=== PATIENT | male | born 1995 | race Caucasian/White ===

== ENCOUNTER 2020-10-21 15:43 | Emergency (ER) | payer MEDICAID, SELFPAY ==
[2020-10-21 15:47] VITALS: BP 145/82; PULSE 72; RESP 12; TEMP 36.7; O2SAT 97
--- NOTE | 2020-10-21 16:05 | ED.GENADUL_ITS ---
Discharge Plan Disposition Patient Disposition: HOME Condition: Stable Discharge Details Clinical Impression: Hematuria Primary Care Provider: Jeferson Parada ED Provider: Dany Chavez Home Meds and New Rx's Prescriptions: Continued Vyvanse 10 mg capsule 10 mg PO PRN PRNRF: 0 Discharge Instructions Instructions: Hematuria (ED) Additional Instructions: you have a small amount of blood in your urine you should be contacted with an appointment for urology if you have severe worsening pain, fevers or feel more ill return to the emergency department Medical Decision Making 25 yo male who denies chronic medical problems comes in with 4-5 days of feeling as though he can't empty his bladder and having to go frequently. Denies discharge, vomit, fevers, back pain. He only has discomfort in suprapubic region and has no abdominal tenderness on exam. No testicle swelling or pain. He states not sexually active for years and no concern for std. Given his symptoms will obtain ua and also bladder scan. Has no findings on exam or history to suggest pathology such as appendicitis or diverticulitis sodo not feel imaging indicated at this time ua shows micoscopic hematuria otherwise no acute findings, no suggestion of infection.He remains stable without pain at this time. Unclear etiology of his microscopic hematuria, will refer to urology for evaluation as soon as possible. He is stable for d/c and return precautions given Differential Diagnosis Differential Diagnosis: prostate enlarged, uti, cystitis Lab Data Lab results reviewed: Yes I reviewed the patient's lab results. HPI General Mode of arrival: ambulatory . Date/Time Provider Initiated Documentation: 10/21/20 15:59 . Limitations to Documentation: no limitations . Information obtained by: patient . History of Present Illness 25 year old M presents to the emergency department with the chief complaint of feels can't empty bladder, described as mild, Patient started experiencing this day(s) (5) and it has been constant. No relieving factors improve symptom(s), No exacerbating factors reported . Patient did receive the following treatments prior to arrival, none Related Data Home Medications Medication Instructions Recorded Confirmed lisdexamfetamine 10 mg capsule 10 mg PO PRN PRN 03/24/20 10/21/20 Allergies Allergy/AdvReac Type Severity Reaction Status Date / Time No Known Allergies Allergy Verified 10/21/20 15:49 General Stated Complaint: Abd Prob DARRICK: 3 Review of Systems All systems reviewed & are unremarkable except as noted in HPI and below Constitutional Constitutional: Denies chills, Denies fever(s) and Denies weakness Cardiovascular Cardiovascular: Denies chest pain and Denies dyspnea Respiratory Respiratory: Denies cough and Denies dyspnea Gastrointestinal Gastrointestinal: Denies nausea and Denies vomiting Musculoskeletal Musculoskeletal: Denies joint swelling Neurologic Neurologic: Denies weakness Psychiatric Psychiatric: Denies depression PFSH Medical History (Updated 10/21/20 @ 18:03 by Dany Chavez MD) ADHD Forearm fracture Left Social History (Updated 04/22/20 @ 13:34 by Ashlee Obrien RN) Smoking/Tobacco Use Status: Never Smoking risk assessment performed?: Yes Alcohol Intake: current Alcohol Intake frequency: a few times a week Alcohol type: beer and wine Drug use: Occasionally Substance use type: marijuana Adopted: Yes Caregiver/Support person: No Foster care: No Household members: family Housing: house Do you need help understanding health information?: Rarely 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: Student Sexually active: Yes Do you think of yourself as: straight/heterosexual Current gender identity: male Do you feel safe at home: Yes Do you feel safe in your relationship?: Yes Exam Const General: no acute distress Orientation: alert HENMT Head: normal to inspection Ears: external ears normal General nose exam: external nose normal Mouth: moist mucous membranes Eyes General: appearance normal, both eyes and all related structures Neck Neck: normal visual inspection Resp Effort & Inspection: normal respiratory effort and able to speak in complete sentences Cardio Rate: regular rate GI Palpation: soft, not rigid and nontender Skin General skin exam: no rashes or lesions noted Neuro General: patient alert and patient oriented x3 Extrem General: normal to inspection Psych Mental Status: mental status grossly normal Course Vital Signs Vital signs: Vital Signs Temperature 36.7 C 10/21/20 15:47 Pulse 72 10/21/20 15:47 Respiratory Rate 12 10/21/20 15:47 Blood Pressure 145/82 H 10/21/20 15:47 Pulse Oximetry 97 10/21/20 15:47 Temperature 36.7 C 10/21/20 15:47 Temperature Source Skin 10/21/20 15:47 Pulse 72 10/21/20 15:47 Respiratory Rate 12 10/21/20 15:47 Respiratory Effort Non-Labored 10/21/20 15:53 Blood Pressure 145/82 H 10/21/20 15:47 Blood Pressure Position Sitting 10/21/20 15:47 Pulse Oximetry 97 10/21/20 15:47 Oxygen Delivery Method Room Air 10/21/20 15:47 Oxygen Flow Rate 0 10/21/20 15:47 Pain Level 3 10/21/20 15:53
[2020-10-21 17:28] LABS: Bilirubin Small (Negative); Blood Trace-intact (Negative); Clarity Clear (Clear); Glucose Negative (Negative); Ketones 15 mg/dL (Negative); Leukocyte Esterase Negative (Negative); Nitrite Negative (Negative); Specific Gravity >= 1.030 (1.005-1.025); Urobilinogen 0.2 EU/dL (Up TO 0.2)
[2020-10-21 17:39] LABS: Bacteria Negative HPF (Negative); Crystals Negative HPF (Negative); Epithelial Cells Negative HPF (Negative); Other Cells Negative (Negative); WBC 0-2 HPF (0-5)
[2020-10-21 17:40] LABS: C & S Indicated? No; Casts Negative LPF (Negative); Mucus Moderate (Negative)
--- NOTE | 2020-10-21 18:12 | NUR.NOTE ---
referral faxed to Urology for hematuria follow up.Nursing Note:
[2020-10-21 18:15] VITALS: BP 145/82; PULSE 72; RESP 12; TEMP 36.7; O2SAT 97
== END 2020-10-21 18:20 | disposition home or self-care (01) ==
PROVIDERS: Emergency Provider Emergency Medicine; PCP Family Medicine
DX: R31.9 Hematuria, unspecified (principal)
CPT/HCPCS: 99282; 81003; 81015; 87086

== ENCOUNTER 2021-07-29 16:35 | Emergency (ER) | payer MEDICAID, SELFPAY ==
[2021-07-29 16:40] VITALS: BP 123/75; PULSE 80; RESP 18; TEMP 36.7; O2SAT 98
--- NOTE | 2021-07-29 16:51 | ED.GENADUL_ITS ---
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 You have a small trace amount of blood in your urine. No evidence of urinary tract infection. We did send your urine for cultures which take about 2 to 3 days to result. If they come back positive we will call you. At this time there is no reason to put you on any antibiotic. Follow up with primary care provider in 3-5 days. Return to ED sooner if any worsening or concerns. Increase oral fluids. Please take Tylenol or Ibuprofen with food every 4-6 hours as needed for pain and swelling. Referrals: Jeferson Parada DO [Primary Care Provider] - 5 days Medical Decision Making 26-year-old male presents to the ER with chief complaint of dysuria and painful urination which began approximately a week ago. Patient denies any discharge penile lesions abdominal pain or any other associated symptoms. He denies any fever nausea vomiting diarrhea. He reports that he has not been sexually active since June 24 and has not concern for sexually transmitted diseases. He has a past medical history of ADHD. Endorses occasional marijuana. No other drugs or alcohol. Urine chlamydia and gonorrhea and urinalysis ordered. Trace hematuria noted on urinalysis. No leukocytes no nitrites no evidence for urinary tract infection. Discussed results with patient due to some right CVA tenderness and history of kidney stones I discussed option for getting a CT to rule out kidney stone. Patient verbalized understanding and is in agreement with the CT. FINDINGS: Liver: Normal. No mass. Gallbladder and bile ducts: Normal. No calcified stones. No ductal dilation. Pancreas: Normal. No ductal dilation. Spleen: Normal. No splenomegaly. Adrenal glands: Normal. No mass. Kidneys and ureters: No renal or ureteral stones are identified. There is no hydronephrosis or hydroureter. Stomach and bowel: Unremarkable. No obstruction. No mucosal thickening. Appendix: No evidence of appendicitis. Intraperitoneal space: Unremarkable. No free air. No significant fluid collection. Vasculature: Unremarkable. No abdominal aortic aneurysm. Lymph nodes: Unremarkable. No enlarged lymph nodes. Urinary bladder: No bladder stones are identified. The bladder is not well distended, limiting evaluation. Reproductive: Unremarkable as visualized. Bones/joints: Unremarkable. No acute fracture. Soft tissues: There is a 1.2 x 1.0 cm fat containing umbilical hernia. IMPRESSION: 1. No urinary tract stones identified. No evidence of urinary tract obstruction. 2. Urinary bladder is not well distended, limiting evaluation. 3. Tiny fat containing umbilical hernia. Thank you for allowing us to participate in the care of your patient. Dictated and Authenticated by: Amor Bran MD Discussed CT results with patient who verbalized understanding. Instructed to follow-up in strict return instructions discussed. Patient discharged in hemodynamically stable condition. HPI General Mode of arrival: ambulatory . Date/Time Provider Initiated Documentation: 07/29/21 16:37 . Limitations to Documentation: no limitations . Information obtained by: patient and RN notes reviewed . HPI Narrative: 26-year-old male presents to the ER with chief complaint of dysuria and painful urination which began approximately a week ago. Patient denies any discharge penile lesions abdominal pain or any other associated symptoms. He denies any fever nausea vomiting diarrhea. He reports that he has not been sexually active since June 24 and has not concern for sexually transmitted diseases. He has a past medical history of ADHD. Endorses occasional marijuana. No other drugs or alcohol. Related Data Home Medications Medication Instructions Recorded Confirmed lisdexamfetamine [Vyvanse] 10 mg PO PRN PRN MDD 10 mg 07/29/21 07/29/21 Allergies Allergy/AdvReac Type Severity Reaction Status Date / Time No Known Allergies Allergy Verified 07/29/21 16:51 General Stated Complaint: Urinary DARRICK: 3 Review of Systems All systems reviewed & are unremarkable except as noted in HPI and below Genitourinary Genitourinary: Reports dysuria, Denies scrotal swelling and Denies testicular pain [facility] Active Problem List Hematuria (Acute) ADHD (Acute) Medical History Forearm fracture Left Social History Smoking/Tobacco Use Status: Never Smoking risk assessment performed?: Yes Alcohol Intake: current Alcohol Intake frequency: a few times a week Alcohol type: beer and wine Drug use: Occasionally Substance use type: marijuana Adopted: Yes Caregiver/Support person: No Foster care: No Household members: family Housing: house Number of Children: 0 Do you need help understanding health information?: Rarely 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: Student Pets and animals: Yes Pets and animals: dog(s) Sexually active: Yes Do you think of yourself as: straight/heterosexual Current gender identity: male Do you feel safe at home: Yes Do you feel safe in your relationship?: Yes Exam Narrative Exam Narrative: Constitutional: Alert and oriented x3. Appears stated age. Normal body habitus. Head: Normocephalic, no trauma. Eyes: Pupils PERRL, Red reflex noted, EOM's intact. Eyelids symmetrical without lesions, discharge, or swelling. ENT: Bilateral TM's WNL, External ear normal to inspection, no mastoid TTP, swelling, or erythema, Nasal turbinates WNL, no nasal discharge. Normal dentition, Posterior pharynx WNL, no exudate. Chest: RRR, Normal S1, S2, distal pulses intact. Resp: Lungs clear to auscultation bilaterally, no wheezes, rales, or rhonchi. Abdomen: Soft, non-distended, Normoactive bowel sounds all 4 quads. Musculoskeletal: Normal gait, 5/5 strength to all four extremities. Skin: No suspicious rashes or lesions. Capillary refill less than 2 sec. Neurologic: Cranial nerves II-XII intact. Alert and oriented x 3. Motor: No deficits noted. Sensory: Intact bilaterally all 4 extremities. Reflexes: DTR's intact bilaterally.. Hematologic/Lymphatic: No ecchymosis, no lymphadenopathy. Course Vital Signs Vital signs: Vital Signs Temperature 36.7 C 07/29/21 16:40 Pulse 80 07/29/21 16:40 Respiratory Rate 18 07/29/21 16:40 Blood Pressure 123/75 07/29/21 16:40 Pulse Oximetry 98 07/29/21 16:40 Temperature 36.7 C 07/29/21 16:40 Temperature Source Temporal Artery Scan 07/29/21 16:40 Pulse 80 07/29/21 16:40 Respiratory Rate 18 07/29/21 16:40 Blood Pressure 123/75 07/29/21 16:40 Blood Pressure Position Sitting 07/29/21 16:40 Pulse Oximetry 98 07/29/21 16:40 Oxygen Delivery Method Room Air 07/29/21 16:40 Oxygen Flow Rate 0 07/29/21 16:40
[2021-07-29 17:14] LABS: Bilirubin Negative (Negative); Blood Trace-intact (Negative); Clarity Clear (Clear); Glucose Negative (Negative); Ketones Negative (Negative); Leukocyte Esterase Negative (Negative); Nitrite Negative (Negative); Urobilinogen 0.2 EU/dL (Up TO 0.2)
--- NOTE | 2021-07-29 17:15 | DI.CT_ITS ---
Exam(s) CT RENAL COLIC WO EXAM: CT RENAL COLIC WO CLINICAL HISTORY: Hematuria, Right CVA tenderness. TECHNIQUE: Imaging Protocol: Axial computed tomography images with coronal and sagittal reformatted images were created and reviewed CONTRAST MATERIAL: Intravenous: none Oral: None COMPARISON: No exams were available for comparison FINDINGS: VISUALIZED LUNG BASES: No nodules nor pleural effusions evident. ABDOMEN: There is no ascites. LIVER: There are no obvious focal hepatic lesions evident of this noninfused study. GALLBLADDER/BILIARY: No obvious gallbladder pathology. CBD is not dilated. PANCREAS: No evidence of pancreatic mass nor dilatation of the pancreatic duct. SPLEEN: Spleen is not enlarged. No obvious intrasplenic lesions. ADRENALS: There are no significant adrenal masses. KIDNEYS:No cysts evident. No solid renal masses. No calculi nor hydronephrosis. . ABDOMINAL AORTA: Abdominal aorta is not enlarged. LYMPH NODES: There is no retroperitoneal nor paraaortic adenopathy. ABDOMINAL WALL: No evidence of significant anterior abdominal wall nor inguinal hernia. GI: There is no evidence of bowel obstruction, free air, nor abscess. PELVIS: LYMPH NODES: There is no intrapelvic nor inguinal adenopathy. GI: No evidence of appendicitis.No evidence of sigmoid diverticulitis. URINARY BLADDER: Not well distended but no obvious radiopaque calculi therein. REPRODUCTIVE: Unremarkable OSSEOUS: No significant osseous lesions. IMPRESSION: 1. There are no urinary tract calculi and no evidence of urinary tract obstruction. 2. No evidence of appendicitis. 3. No ascites. RADIATION DOSE DELIVERED: 737.93mGy.cm Total DLP DATA REPOSITORY: All CT scans at this facility are submitted to the National Radiology Data Registry (NRDR) Dose Index Registry (DIR) with the [employer] (A[employer]). RADIATION OPTIMIZATION: All CT scans at this facility use at least one of these dose optimization te chniques: automated exposure control; mA and/or kV adjustment per patient size (includes targeted exa ms where dose is matched to clinical indication); or iterative reconstruction.
[2021-07-29 17:21] LABS: Bacteria Negative HPF (Negative); C & S Indicated? No; Casts Negative LPF (Negative); Crystals Negative HPF (Negative); Epithelial Cells Negative HPF (Negative); Mucus Negative (Negative); Other Cells Negative (Negative); RBC 0-2 HPF (0-2); WBC Negative HPF (0-5)
--- NOTE | 2021-07-29 19:13 | DI.VRAD_ITS ---
PROCEDURE INFORMATION: Exam: CT Abdomen And Pelvis Without Contrast Exam date and time: 07/29/2021 5:26 PM Age: 26 years old Clinical indication: Other: Hematuria TECHNIQUE: Imaging protocol: Computed tomography of the abdomen and pelvis without contrast. Radiation optimization: All CT scans at this facility use at least one of these dose optimization techniques: automated exposure control; mA and/or kV adjustment per patient size (includes targeted exams where dose is matched to clinical indication); or iterative reconstruction. COMPARISON: No relevant prior studies available. FINDINGS: Liver: Normal. No mass. Gallbladder and bile ducts: Normal. No calcified stones. No ductal dilation. Pancreas: Normal. No ductal dilation. Spleen: Normal. No splenomegaly. Adrenal glands: Normal. No mass. Kidneys and ureters: No renal or ureteral stones are identified. There is no hydronephrosis or hydroureter. Stomach and bowel: Unremarkable. No obstruction. No mucosal thickening. Appendix: No evidence of appendicitis. Intraperitoneal space: Unremarkable. No free air. No significant fluid collection. Vasculature: Unremarkable. No abdominal aortic aneurysm. Lymph nodes: Unremarkable. No enlarged lymph nodes. Urinary bladder: No bladder stones are identified. The bladder is not well distended, limiting evaluation. Reproductive: Unremarkable as visualized. Bones/joints: Unremarkable. No acute fracture. Soft tissues: There is a 1.2 x 1.0 cm fat containing umbilical hernia. IMPRESSION: 1. No urinary tract stones identified. No evidence of urinary tract obstruction. 2. Urinary bladder is not well distended, limiting evaluation. 3. Tiny fat containing umbilical hernia. Dictated and Authenticated by: Amor Bran MD. Ordering:STEVEN Roger MD
[2021-07-29 19:25] VITALS: BP 125/83; PULSE 72; RESP 16; O2SAT 97
[2021-07-31 14:20] LABS: Chlamydia Result Negative (Negative); GC Result Negative (Negative)
== END 2021-07-29 19:27 | disposition home or self-care (01) ==
PROVIDERS: Emergency Provider Registered Nurse Emergency; PCP Family Medicine
DX: R31.9 Hematuria, unspecified (principal); R30.9 Painful micturition, unspecified
CPT/HCPCS: 87491; 87591; 99284; 74176; 81003; 81015; 99283

== ENCOUNTER 2021-08-09 12:37 | Outpatient (REF) | payer MEDICAID, SELFPAY ==
[2021-08-09 14:00] LABS: Bilirubin Negative (Negative); Blood Trace-intact (Negative); Clarity Turbid (Clear); Glucose Negative (Negative); Ketones Negative (Negative); Leukocyte Esterase Negative (Negative); Nitrite Negative (Negative); Specific Gravity >= 1.030 (1.005-1.025); Urobilinogen 0.2 EU/dL (Up TO 0.2)
[2021-08-09 14:07] LABS: Bacteria Negative HPF (Negative); C & S Indicated? No; Casts Negative LPF (Negative); Crystals Many Amorphous HPF (Negative); Epithelial Cells Rare HPF (Negative); Mucus Negative (Negative); WBC 0-2 HPF (0-5)
== END 2021-08-09 12:38 | disposition home or self-care (01) ==
LOC: LBN 12:37
PROVIDERS: Nurse Practitioner Adult Health; PCP Family Medicine; Visit Provider Family Medicine
DX: R31.9 Hematuria, unspecified (principal)
CPT/HCPCS: 81003; 81015

== ENCOUNTER 2021-10-09 01:23 | Outpatient (CLI) | payer MEDICAID, SELFPAY ==
[2021-10-09 22:44] LABS: COVID-19 PCR Negative (Negative)
[2021-10-09 22:57] LABS: Source Nasal/Nares
== END 2021-10-09 01:24 | disposition home or self-care (01) ==
LOC: LBO 01:23
PROVIDERS: PCP Family Medicine; Visit Provider Surgery
DX: Z20.822 Contact with and (suspected) exposure to COVID-19 (principal); Z01.818 Encounter for other preprocedural examination
CPT/HCPCS: 87635

== ENCOUNTER 2021-10-10 06:11 | Day surgery (SDC) | payer MEDICAID, SELFPAY ==
--- NOTE | 2021-10-09 19:59 | PDOC.DSDIS_ITS ---
Discharge Plan Disposition Patient Disposition: HOME Condition: Good Discharge Details Reason For Visit: hernia repair Attending Provider: Salima Verdin Primary Care Provider: Jeferson Parada Home Meds and New Rx's Prescriptions: New tramadol [Ultram] 50 mg tablet 50 mg PO Q6H PRNQty: 10 0RF Continued sildenafil 30 mg PO PRN 0RF Label Comments: Gets through [facility] - telehealth visit per pt. Vyvanse 10 mg capsule 10 mg PO PRN MDD 10 mg Qty: 28 0RF Vyvanse 10 mg capsule 10 mg PO DAILY MDD 10 mg PRN (Reason: academics) Qty: 28 0RF multivitamin Tablet 1 tab PO DAILY 0RF acetaminophen [Tylenol Extra Strength] 500 mg tablet 1,000 mg PO Q6H PRN0RF ibuprofen 200 mg capsule 600 mg PO Q6H PRN0RF Discharge Instructions Additional Instructions: Dr. Verdin HERNIA REPAIR ? POSTOPERATIVE INSTRUCTIONS Patients who have this type of surgery can usually be expected to return to work within two weeks and have minimal amounts of discomfort. ? ACTIVITY: The day of surgery should be spent resting. However, you can be up for short periods of time, I.E., going to the bathroom or kitchen. Avoid lifting or straining. On the day following surgery, you can be up and about as desired. ? LIFTING: Restrict your lifting to no more than five (5) pounds for the first week following surgery. For the second week after surgery, don?t lift more than ten pounds.? We will decide when you are done with restrictions and when you can return to work, at your follow-up appointment.? No sexual activity for two weeks.? ? DIET: There are no dietary restrictions following surgery. However, you may want to start with small amounts of liquids to avoid nausea the day of surgery. ? INCISION CARE: You will notice purple skin glue closing the incision.? Do not peel this off- it will wear off on its own.? After 24 hours you may shower. The dressing may be replaced for comfort, but is not necessary. ?An ice bag may be applied to the incision for 72 hours following surgery. ? SIGNS OF INFECTION: It is not unusual to have some black and blue discoloration of the skin around the incision, but also scrotum and penis.? ?It will slowly disappear. If you have any increased redness, drainage, fever (above 100 degrees), please contact your doctor for an examination. ? DISCOMFORT: You may expect to have some mild discomfort at the incision sight. If severe pain develops you should contact your doctor for further instructions. ? URINATION: Patients who have surgery occasionally have problems urinating. If you experience problems and are not able to urinate within 6 hours following your surgery, please call your doctor immediately or go to your nearest Emergency Room for evaluation. ? DRIVING: NO driving for three (3) days after surgery, or if you are still taking narcotic pain medication.? ? MEDICATIONS: Alternate Tylenol 1000mg by mouth every 8 hours and Ibuprofen 600mg every 6 hours. ?Make sure you take ibuprofen with food and not on an empty stomach. ?Take the Tylenol and ibuprofen continuously for the first 72hrs- not just when you have pain.? Use the tramadol for breakthrough pain.? Use ICE!?? Twenty minutes on, and then off, continuously for the first 72hours. If you are taking narcotic pain medication, follow the instructions on the label and do not drive. Pain medications can make you very constipated. Make sure you are moving your bowels daily. If not, take Miralax, milk of magnesia or magnesium citrate.?? Anesthesia makes you very constipated.? Take a dose of milk of magnes ia the morning after surgery. ? REPORT: Unusual swelling, severe pain, unresolved nausea, signs of infection, or difficulty in urination to your surgeon. Follow up in clinic with Dr. Verdin in 2 weeks.? [phone] ? ? Activity:: see above Remove Dressings/Wound Care:: 24 hours Shower/Bathe:: 24 hours Diet:: As Tolerated Discharge Orders Discharge Orders: Discharge Order (Routine); Ordered 10/09/21 Ordered By: Salima Verdin
[2021-10-10] VITALS (8 sets, daily range): BP systolic 93–132; BP diastolic 59–94; PULSE 63–81; RESP 14–18; TEMP 36.2–36.7; O2SAT 96–98; BMI 29.6
--- NOTE | 2021-10-10 06:21 | W.ANESPRE ---
General Info Date of Service Date Performed: 10/10/21 Height: 5 ft 7 in Weight: 85.899 kg Body Mass Index (BMI): 29.6 Surgical Procedure: Operation Date: 10/10/21 07:40 Proposed Procedure Side Surgeon p Herniorrhaphy Umbilical w/ possible Mesh Salima Verdin DO Meds Allergies and Home Medications Allergies Allergy/AdvReac Type Severity Reaction Status Date / Time No Known Allergies Allergy Verified 10/10/21 06:24 Home Medication Medication Instructions Recorded sildenafil 30 mg PO PRN 09/04/21 acetaminophen 500 mg tablet 1,000 mg PO Q6H PRN tab 09/25/21 (Tylenol Extra Strength) ibuprofen 200 mg capsule 600 mg PO Q6H PRN cap 09/25/21 multivitamin 1 tab PO DAILY 09/25/21 lisdexamfetamine 10 mg capsule 10 mg PO DAILY PRN #28 cap MDD 10 10/06/21 (Vyvanse) mg lisdexamfetamine 10 mg capsule 10 mg PO PRN #28 cap MDD 10 mg 10/06/21 (Vyvanse) Current Visit Medications: Current Medications Generic Name Dose Route Start Last Admin Trade Name Freq PRN Reason Stop Dose Admin Acetaminophen 1,000 mg 10/10/21 06:00 Acetaminophen 500 Mg Tab PO 11/08/21 23:59 PREOP ESTHER Gabapentin 600 mg 10/10/21 06:00 Gabapentin 300 Mg Cap PO 11/08/21 23:59 PREOP ESTHER Ringer's Solution 1,000 mls @ 80 mls/hr 10/10/21 06:00 IV 11/08/21 23:59 INFUSION ESTHER Cefazolin Sodium/Dextrose 2 gm in 50 mls @ 100 mls/hr 10/10/21 06:00 Ancef Duplex IVPB 11/08/21 23:59 PREOP ESTHER Ondansetron HCl 4 mg/ Sodium 52 mls @ 200 mls/hr 10/09/21 19:59 Chloride IVPB Q6H PRN PRN IV Miscellaneous Supplies 1 each 10/10/21 06:00 Iv Access IV 11/08/21 23:59 DIRECTED ESTHER Morphine Sulfate 2 mg 10/09/21 19:59 Morphine 4 Mg/Ml Syr IVP Q1H PRN PRN Sodium Chloride 0 ml 10/10/21 06:00 Normal Saline Flush 10 Ml Syr IV 11/08/21 23:59 PRN PRN Sodium Chloride 0 ml 10/10/21 06:00 Normal Saline 10 Ml Vial IJ 11/08/21 23:59 DIRECTED PRN Sterile Water 0 ml 10/10/21 06:00 Water,Injection,Sterile 10 Ml Vial IJ 11/08/21 23:59 DIRECTED PRN Tramadol HCl 50 mg 10/09/21 19:59 Tramadol 50 Mg Tab PO Q6H PRN PRN Pain PFSH Active Problems Active Problems: Problem Status Onset Code Umbilical hernia K42.9 Hematuria R31.9 ADHD F90.9 Medical History Medical History Forearm fracture Left Surgical History Surgical History (Updated 10/10/21 @ 06:24 by Kirstin Rodrigez RN) [place] teeth extracted Tobacco Smoking/Tobacco Use Status: Never Alcohol Alcohol Intake: current Alcohol intake frequency: a few times a week Alcohol type: beer and wine Substance Use Substance use: Occasionally Substance use type: marijuana Vital Signs and Lab Results Vital Signs Most Recent Vital Signs in EMR: Temp Pulse Resp BP Pulse Ox 36.4 C L 72 16 132/92 H 98 10/10/21 06:20 10/10/21 06:20 10/10/21 06:20 10/10/21 06:20 10/10/21 06:20 Lab Results Blood Type / Crossmatch: No Data to Display Complete Blood Count: No Data to Display Complete Metabolic Panel: No Data to Display Liver Function Panel: No Data to Display Coagulation Panel: No Data to Display Cardiac Panel: No Data to Display Arterial Blood Gas: No Data to Display Venous Blood Gas: No Data to Display Pancreas Panel: No Data to Display Thyroid Panel: No Data to Display Infectious Disease: Coronavirus (COVID-19)(PCR) Negative (Negative) 10/09/21 09:52 10/09/21 Coronavirus 2019 Source Nasal/Nares 10/09/21 09:52 10/09/21 Blood Cultures: No Data to Display Toxicology Panel: No Data to Display Anesthesia Assessment and Plan Anesthesia History Personal History: No History of Anesthesia Complications Family History: No Family History of Anesthesia Complications Exercise Tolerance Exercise Tolerance: Metabolic Equivalents>4 Cardiac & Pulmonary Exam Cardiac Exam: Normal S1/S2 Heart Sounds Pulmonary Exam: Clear Bilateral Breath Sounds Implantable Cardiac Device Does patient have a Pacemaker or an ICD?: No Airway Exam Known Difficult Airway: No Mallampati Class: 2 Mouth Opening: Normal (> 3cm) Thyromental Distance: Greater than 3 cm Neck Range of Motion: Full ROM Neck Circumference: Normal Teeth Condition: Normal Dentition ASA Classification ASA Score: ASA 2 Emergency Case?: No NPO Status NPO Status: NPO Clears >2 hours, Solids >8 hours Anesthesia Plan Resuscitation Status: Full Code Anesthesia Technique: General Anesthesia Airway Planned: LMA Pain Management: Surgeon and patient request nerve block Monitors Used: Standard Monitors Preoperative Comments:: 26 yo male for umbo hernia. Sig PMHx: ADHD (Vyvanse), denies major, never smoker (tobacco), occ cannabis/ETOH
[2021-10-10] MEDS: Gabapentin 300 MG CAP 600 MG PO (06:42)
[2021-10-10] MEDS: Acetaminophen 500 MG TAB 1000 MG PO (06:43)
[2021-10-10] MEDS: Lactated Ringers 1,000 ML 80 ML IV (07:00)
--- NOTE | 2021-10-10 07:15 | W.ANESNERVE ---
Nerve Block Single Injection Procedure Date and Time Date Performed: 10/10/21 Procedure Start: 07:38 Location Where Procedure Performed Procedure Location: Operating Room Procedure Stop: 07:45 Reason Performed: Postoperative Analgesia Requesting Provider: Salima Verdin Timeout Performed Timeout Performed: Yes Monitoring Used ECG, Blood Pressure, SpO2 and ETCO2 Sterility Sterility: Hand Hygiene, Surgical Cap, Surgical Mask, Sterile Gloves and Chlorhexidine Sedation Given During Procedure Sedation Given (Indicate Dose Given): No Sedation given Patient Mental Status Patient Mental Status: Performed under general anesthesia Nerve Block 1st Nerve Block: Laterality: Bilateral Block Type: Rectus Sheath (Bilateral) Needle / Catheter Used: 100mm SonoPlex II Local Anesthetic Bolus (Indicate Dose Given): Injected in 3-5ml increments after negative blood aspiration, Half of Total block solution given into each side, Bupivacaine 0.375% Dose:: 30 mL and Exparel Dose:: 10 mL Additives (Indicate Dose Given): None Ultrasound: Sterile probe cover and gel used Ultrasound Image Saved?: Yes Nerve Stimulator: Not Used Paresthesia: None Procedure Tolerated: No Complications Procedure Outcome: Successful Performed By: Lul Reese
[2021-10-10] MEDS: ceFAZolin 2 GM/50 ML BAG IVPB (07:34)
[2021-10-10] MEDS: Bupivacaine 0.25% Pres-Free 30 ML VIAL (07:52)
[2021-10-10] MEDS: Bupivacaine LIPOSOME/PF 133 MG/10 ML VIAL IJ (08:12)
--- NOTE | 2021-10-10 08:25 | W.PM.OP ---
Operative Note Operative Note DATE OF PROCEDURE: 10/10/21 PRE-OP DIAGNOSIS: umbilical hernia POST-OP DIAGNOSIS: same PROCEDURE: open repair w/ mesh SURGEON: Salima Mcwilliams PRODUCT CONTROL AND LOGISTICS ANALYST: Edwige Storey ANESTHESIA TYPE: Local By Surgeon and General LMA/ETT Refer to Anesthesia Record ESTIMATED BLOOD LOSS: 5 PATHOLOGY: none sent COMPLICATIONS: None Patient was transported to: PACU Patient's condition: stable Procedure Description: The pt is here today for symptomatic umbilical hernia and is here today for repair. Informed consent was obtained, explaining risks and benefits of the procedure including but not limited to bleeding, infection, pneumonia, blood clots, recurrence, chronic pain or chronic numbness, reaction to mesh necessitating removal, complications of anesthesia and other unforetold complications. DESCRIPTION OF PROCEDURE: The patient was brought to the operating suite and placed in supine position. Anesthesia was administered per the Department of Anesthesia. Nerve block is done per the Dept of anesthesia w/ experel.? ?Patient prepped and draped in the usual sterile fashion using DuraPrep scrub solution. IV antibiotics were administered. Pause for the cause was done. 20cc of .25% Marcaine is used for local anesthetic. A 1-inch incision was made in the inferiorly to the umbilicus. Umbilicus was dissected off the fascia. The surrounding tissue is dissected off the fascia.? Omentum is protruding through the defect. This was returned to the abdomen. It is not infarcted. A small Kerlix patch was then placed in the defect, the defect was closed, over sewn with 2-0 vicryl and was copiously irrigated. An additional 10cc of Experel is is instilled into the wound at the time of closure. Deep tissue was approximated with 3-0 Vicryl and skin was approximated with 4-0 Monocryl in a running subcuticular fashion. Skin glue was applied. The patient tolerated the procedure well without complications and was transferred to recovery room in stable condition. SALIMA MCWILLIAMS,
--- NOTE | 2021-10-10 09:50 | W.ANESPOSTOP ---
Postoperative Evaluation Date, Time and Location Date Performed: 10/10/21 Time Performed: 09:50 Patient Location: Day Surgery Unit Vital Signs Most Recent Imported Vital Signs: Most Recent Vital Signs Temp Pulse Resp BP Pulse Ox 36.2 C L 63 16 110/94 H 97 10/10/21 09:20 10/10/21 09:20 10/10/21 09:20 10/10/21 09:20 10/10/21 09:20 Pain Score Most Recent Pain Score: Most Recent Pain Score Pain Level 0 10/10/21 09:20 Assessment Mental Status: Awake (Alert & Oriented to Patient Baseline) Airway and Respiratory Function: Patent airway with normal (patient baseline) respiratory exam Cardiovascular Function: Hemodynamically Stable Hydration Status: Adequately Hydrated Nausea & Vomiting: No Nausea or Vomiting Pain: Pt. Denies Any Pain Peripheral Nerve Block: Regional nerve block not resolved at time of post operative discharge
== END 2021-10-10 10:25 | disposition home or self-care (01) ==
LOC: SUR 06:11
PROVIDERS: PCP Family Medicine; Visit Provider Surgery
PROC: (CPT 49585; principal; 2021-10-10 07:30)
DX: K42.9 Umbilical hernia without obstruction or gangrene (principal)
CPT/HCPCS: 49585; 76942; C1781; J0690; J1100; J1885; J2001; J2405; J2704

== ENCOUNTER 2024-01-22 15:34 | Emergency (ER) | payer BC, SELFPAY ==
[2024-01-22 15:37] VITALS: BP 142/106; PULSE 61; RESP 18; TEMP 36.6; O2SAT 98
--- NOTE | 2024-01-22 16:28 | ED.GENADUL_ITS ---
Discharge Plan Disposition Patient Disposition: Home Condition: Stable Discharge Details Clinical Impression: Migraine syndrome Primary Care Provider: Jeferson Parada ED Provider: Ej Azul Home Meds and New Rx's Prescriptions: No Action sildenafil 30 mg PO PRN Patient Comments: Gets through [facility] - telehealth visit per pt. Vyvanse 10 mg capsule 10 mg PO DAILY MDD 10 mg Qty: 28 0RF multivitamin Tablet 1 tab PO DAILY Discharge Instructions Instructions: General Headache (ED) Additional Instructions: You were seen in the emergency department for your headache with some aura preceding a likely migraine. One-sided headache is classic for migraine, the CT scan shows no acute intracranial abnormality, no stroke or bleeding. Her laboratory workup is benign. If you feel a headache coming on or the aura of migraine coming on please hydrate aggressively, take 2 extra strength Tylenol, 400 mg of ibuprofen, 125 mg Benadryl. Please follow-up with your primary care provider should you need any further headache relief medicines, you may opt for a trial of migraine prevention medicine that you take once per day called sumatriptan, you would also repeat this dose if you get a migraine for a max of 2 doses per day. Please return to the emergency department for any persistent headaches that are not abating, any numbness, tingling, weakness, visual changes, confusion or slurred speech with headache. Referrals: Jeferson Parada DO [Primary Care Provider] - [facility] General Date/Time Provider Initiated Documentation: 01/22/24 15:51 . HPI Narrative: 28 year-old male presents to ED today by POV/ambulating with a chief complaint of some visual disturbances around lunchtime today in L eye periphery followed by severe R sided headache, that is somewhat abating by time of evaluation with onset around 1200. Quality described as R sided severe headache, feels like a nail into area around his eye, no radiation to blindness, floaters, numbness/tingling, focal weakness, states he was having trouble word finding briefly at the headache onset. Severity is described as 10/10 at onset, now a bit more mild. Palliating factors include took Tylenol and ibuprofen. Provoking factors include denies any lack of sleep lately, endorses migraines but never this bad. Patient not anticoagulated. Related Data Home Medications Medication Instructions Recorded Confirmed sildenafil 30 mg PO PRN 09/04/21 01/22/24 multivitamin 1 tab PO DAILY 09/25/21 01/22/24 lisdexamfetamine 10 mg capsule 10 mg PO DAILY #28 caps 11/23/22 01/22/24 (Vyvanse) Previous Rx's Medication Instructions Recorded lisdexamfetamine 10 mg capsule 10 mg PO DAILY #28 caps 11/23/22 (Vyvanse) Allergies Allergy/AdvReac Type Severity Reaction Status Date / Time No Known Allergies Allergy Verified 01/22/24 15:40 General Stated Complaint: Headache DARRICK: 3 Review of Systems All systems reviewed & are unremarkable except as noted in HPI and below Exam Narrative Exam Narrative: GENERAL APPEARANCE: Well-nourished, non-toxic, awake and alert, atraumatic, no acute distress. SKIN: Warm, pink, dry, intact, without rashes/lesions/ulcerations. HEAD: Normocephalic, atraumatic, normal hair distribution for gender/age. EYES: Pupils PERRLA, EOMs intact without nystagmus, normal conjunctiva, no exudates on lids/lashes, eyes not hard to palpation, visual alanis intact, vision grossly intact. ENT: Nares patent, no circumoral cyanosis, no facial swelling NECK: Supple, trachea midline, painless cervical ROM, no nuchal rigidity. LUNGS/CHEST: Lungs CTA bilaterally- no rhonchi/rales/wheezes diffusely, non- labored respirations, normal A/P diameter, symmetrical expansion, no chest wall deformity HEART (CV/PV): Regular rate and rhythm without murmur, no peripheral edema, no JVD. ABDOMEN: Soft, non-distended, no guarding. MSK: Normal ROM, no swelling/deformity to bilateral UEs or LEs, moving all extremities without weakness, no cyanosis, spine midline without tenderness, normal curvature. NEURO: Mental Status AAOx4 - alert to person, place, time, events No facial droop, no forehead involvement. Motor: No focal weakness - strength 5/5 in bilateral UEs and LEs, proximal and distal, symmetric. Sensory: sensation intact to light touch globally. Gait normal: patient ambulated without ataxia into ED room. PSYCH: euthymic, cooperative, pleasant, appropriate speech Course Vital Signs Vital signs: Vital Signs Temperature 36.6 C 01/22/24 15:37 Pulse 61 01/22/24 15:37 Respiratory Rate 18 01/22/24 15:37 Blood Pressure 142/106 H 01/22/24 15:37 Pulse Oximetry 98 01/22/24 15:37 Temperature 36.6 C 01/22/24 15:37 Pulse 61 01/22/24 15:37 Respiratory Rate 18 01/22/24 15:37 Respiratory Effort Normal 01/22/24 15:39 Blood Pressure 142/106 H 01/22/24 15:37 Blood Pressure Position Sitting 01/22/24 15:37 Pulse Oximetry 98 01/22/24 15:37 Oxygen Delivery Method Room Air 01/22/24 15:37 Oxygen Flow Rate 0 01/22/24 15:37 Medical Decision Making This dictation utilizes [id number] dictation software and may contain unedited grammatical errors. 28 y/o M presents to ED today with a chief complaint of R sided severe headache, throbbing, started with some odd visualizations in L eye peripheral vision- denies overt floaters or loss of vision, denies numbness/tingling weakness, states he had slurred speech- but father who was present states he did not notice any slurred speech. Patient has history of migraine to a lesser degree than today's headache. Patients' medical history: Noncontributory. Family and social history: Noncontributory. Pertinent exam findings / vital signs include neuro intact, benign cardiopulmonary status, nontoxic, no tenderness to light touch R temporal area Differential / pathologies of concern include CVA unlikely, likely migraine syndrome, do not suspect ocular pathology, unlikely temporal arteritis Diagnostic studies of: -CTA head and neck, CBC, CMP, CRP/ESR, lactate, procalcitonin. -CBC shows mild leukocytosis 11.2, nonspecific, lactate mildly elevated 1.9, likely in the setting of mild dehydration, magnesium is 1.7 will replete with normal p.o. intake, CRP and ESR negative, procalcitonin negative -CTA head and neck shows no acute pathology Interventions of: -Given IV fluid, IV Benadryl and Reglan, IV dexamethasone, patient had already taken Tylenol and ibuprofen, noted complete relief of headache. ED Course/Assessment/Plan: 28-year-old male presents with a right-sided headache preceded by likely aura of migraine. His workup for intracranial pathology is negative, do not suspect any infectious etiology [place] on his labs. I counseled him on likely migraine, he has no risk factors for stroke or other vascular pathology. Patient was comfortable with discharge and did suggest he follow-up with his primary care provider about possibly trial of migraine preventing medicine like sumatriptan in the long-term. Strict return criteria for any further severe sudden onset headaches especially with neurologic abnormalities like slurred speech, confusion, numbness, weakness, tingling, visual changes. Findings not consistent with CVA/TIA, ICH, focal neurological deficit, temporal arteritis, meningitis or encephalitis. Disposition of Migraine Syndrome. Patient verbalized understanding of the plan and return to ED criteria and engaged in shared decision making. Medical Records Medical records reviewed: Yes I reviewed the patient's medical records. Imaging Data Radiologic Study: Attestation: I personally reviewed and interpreted this imaging study as follows: Imaging: CT Scan Radiologist's impression: EXAM: CT BRAIN NECK CTA CLINICAL HISTORY: R sided WOO with L vision changes around 1200. TECHNIQUE: Imaging Protocol: Axial CT angiography was performed with multi- slice acquisition and multi-planar and/or 3D reconstructions. CONTRAST MATERIAL: Intravenous: Omnipaque 350 contrast volume:100 mL COMPARISON: No priors for comparison. FINDINGS: CT Head W/O and W: Ventricles and Extra axial spaces: Normal in size and morphology for the patient's age. Hemorrhage: None. Cerebral parenchyma: No acute territorial infarct is seen. There is a normal vences-white matter differentiation. Midline shift: None. Brainstem/Cerebellum: Normal. Calvarium: Normal. Visualized Paranasal sinuses/Mastoids: Clear. Soft Tissues: Unremarkable. Enhancement: Unremarkable. CTA Neck W: Common Carotid: Right: No dissection, occlusion or significant stenosis. Left: No dissection, occlusion or significant stenosis. External Carotid: Right: No occlusion or significant stenosis. Left: No occlusion or significant stenosis. Internal Carotid: Right: No dissection, occlusion or significant stenosis. Left: No dissection, occlusion or significant stenosis. Vertebral Artery: Right: No dissection, occlusion or significant stenosis. Left: No dissection, occlusion or significant stenosis. Lung Apices: Normal. Bones: Within normal limits for the patient's age. Soft Tissues: Normal. Thyroid gland: Unremarkable. CTA Brain W: Internal Carotid Arteries: Normal. Anterior Cerebral Arteries: Right: No aneurysm, occlusion or significant stenosis. Left: No aneurysm, occlusion or significant stenosis. Middle Cerebral Arteries: Right: No aneurysm, occlusion or significant stenosis. Left: No aneurysm, occlusion or significant stenosis. Posterior Cerebral Arteries: The left posterior cerebral artery arises from the left posterior communicating artery. Right: No aneurysm, occlusion or significant stenosis. Left: No aneurysm, occlusion or significant stenosis. Vertebral Arteries: Right: No aneurysm, occlusion or significant stenosis. Left: No aneurysm, occlusion or significant stenosis. Basilar Artery: No aneurysm, occlusion or significant stenosis. IMPRESSION: 1. No large vessel occlusion or significant stenosis on the CT angiography of the head. 2. No acute intracranial process. 3. No occlusion or significant stenosis on the CT angiography of the neck. Lab Data Lab results reviewed: Yes I reviewed the patient's lab results. Labs: Laboratory Tests Range/Units 01/22/24 17:00 WBC (4.4-10.8) 10^3/uL 11.24 H RBC (4.36-5.78) 10^6/uL 5.54 Hgb (13.5-17.5) g/dL 15.1 Hct (40.0-50.0) % 45.0 MCV (80-95) fL 81 MCH (27.0-33.0) pg 27.3 MCHC (32.0-36.0) % 33.6 RDW (11.8-14.1) % 12.8 Plt Count (130-400) 10^3/uL 260 MPV (8.0-11.0) fL 8.9 Immature Gran % % 0.5 Neutrophils % % 83.5 Lymphocytes % % 9.6 Monocytes % % 5.6 Eosinophils % % 0.4 Basophils % % 0.4 Nucleated RBC % (0.0-0.3) % 0.0 Absolute Neutrophils (1.2-6.7) 10^3/uL 9.39 H Absolute Lymphocytes (1.2-3.4) 10^3/uL 1.08 L Absolute Monocytes (0.1-0.8) 10^3/uL 0.63 Absolute Eosinophils (0.0-0.7) 10^3/uL 0.04 Absolute Basophils (0.0-0.2) 10^3/uL 0.04 ESR (0-15) mm/hr < 1 VBG Lactate (0.6-1.4) mmol/L 1.9 H Sodium (136-145) mmol/L 142 Potassium (3.5-5.1) mmol/L 4.5 Chloride (98-107) mmol/L 103 Carbon Dioxide (21.0-32.0) mmol/L 31.7 Anion Gap (3-11) mmol/L 7.3 BUN (7-18) mg/dL 13 Creatinine (0.70-1.30) mg/dL 1.0 Est GFR (CKD-EPI 2020) (mL/min/1.73m2) 104.48 Glucose (74-106) mg/dL 132 H Calcium (8.5-10.1) mg/dL 9.1 Magnesium (1.8-2.4) mg/dL 1.7 L Total Bilirubin (0.2-1.0) mg/dL 0.3 AST (15-37) U/L 23 ALT (16-63) U/L 65 H Alkaline Phosphatase (46-116) U/L 97 C-Reactive Protein (<or=0.5) mg/dL < 0.50 Total Protein (6.4-8.2) g/dL 8.0 Albumin (3.4-5.0) g/dL 4.7 Procalcitonin ng/mL < 0.1 Quality:SDOH Health Related Social Needs: No Data to Display PFSH All Active Problems (Updated 01/22/24 @ 18:04 by JOE Heard) Migraine syndrome (Acute) ADHD (Acute) Hematuria (Acute) Umbilical hernia (Acute) CT 07/29/21 Medical History (Updated 01/22/24 @ 18:04 by JOE Heard) Forearm fracture Left Surgical History (Updated 10/11/21 @ 11:04 by Jaja Morgan RN) History of umbilical hernia repair (~10/10/21) [place] teeth extracted Social History Smoking/Tobacco Use Status: Never Smoking risk assessment performed?: Yes Alcohol Intake: current Alcohol Intake frequency: a few times a week Alcohol type: beer and wine Drug use: Occasionally Substance use type: marijuana Details: alcohol- last night, marijuana last night Adopted: Yes Caregiver/Support person: No Foster care: No Household members: family Housing: house Number of Children: 0 Do you need help understanding health information?: Rarely 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: Student Pets and animals: Yes Pets and animals: dog(s) Sexually active: Yes Do you think of yourself as: straight/heterosexual Current gender identity: male Do you feel safe at home: Yes Do you feel safe in your relationship?: Yes
[2024-01-22 16:34] VITALS: BP 142/106; PULSE 61; RESP 18; TEMP 36.6; O2SAT 98
[2024-01-22 16:39] VITALS: BP 106/58; PULSE 62; O2SAT 97
--- NOTE | 2024-01-22 16:45 | DI.CT_ITS ---
Exam(s) CT BRAIN NECK CTA EXAM: CT BRAIN NECK CTA CLINICAL HISTORY: R sided WOO with L vision changes around 1200. TECHNIQUE: Imaging Protocol: Axial CT angiography was performed with multi-slice acquisition and mu lti-planar and/or 3D reconstructions. CONTRAST MATERIAL: Intravenous: Omnipaque 350 contrast volume:100 mL COMPARISON: No priors for comparison. FINDINGS: CT Head W/O and W: Ventricles and Extra axial spaces: Normal in size and morphology for the patient's age. Hemorrhage: None. Cerebral parenchyma: No acute territorial infarct is seen. There is a normal vences-white matter diffe rentiation. Midline shift: None. Brainstem/Cerebellum: Normal. Calvarium: Normal. Visualized Paranasal sinuses/Mastoids: Clear. Soft Tissues: Unremarkable. Enhancement: Unremarkable. CTA Neck W: Common Carotid: Right: No dissection, occlusion or significant stenosis. Left: No dissection, occlusion or significant stenosis. External Carotid: Right: No occlusion or significant stenosis. Left: No occlusion or significant stenosis. Internal Carotid: Right: No dissection, occlusion or significant stenosis. Left: No dissection, occlusion or significant stenosis. Vertebral Artery: Right: No dissection, occlusion or significant stenosis. Left: No dissection, occlusion or significant stenosis. Lung Apices: Normal. Bones: Within normal limits for the patient's age. Soft Tissues: Normal. Thyroid gland: Unremarkable. CTA Brain W: Internal Carotid Arteries: Normal. Anterior Cerebral Arteries: Right: No aneurysm, occlusion or significant stenosis. Left: No aneurysm, occlusion or significant stenosis. Middle Cerebral Arteries: Right: No aneurysm, occlusion or significant stenosis. Left: No aneurysm, occlusion or significant stenosis. Posterior Cerebral Arteries: The left posterior cerebral artery arises from the left posterior commun icating artery. Right: No aneurysm, occlusion or significant stenosis. Left: No aneurysm, occlusion or significant stenosis. Vertebral Arteries: Right: No aneurysm, occlusion or significant stenosis. Left: No aneurysm, occlusion or significant stenosis. Basilar Artery: No aneurysm, occlusion or significant stenosis. IMPRESSION: 1. No large vessel occlusion or significant stenosis on the CT angiography of the head. 2. No acute intracranial process. 3. No occlusion or significant stenosis on the CT angiography of the neck. RADIATION DOSE DELIVERED: 2,184.91mGy.cm Total DLP DATA REPOSITORY: All CT scans at this facility are submitted to the National Radiology Data Registry (NRDR) Dose Index Registry (DIR) with the [employer] (ACR). RADIATION OPTIMIZATION: All CT scans at this facility use at least one of these dose optimization te chniques: automated exposure control; mA and/or kV adjustment per patient size (includes targeted exa ms where dose is matched to clinical indication); or iterative reconstruction.
[2024-01-22] MEDS: Omnipaque 350 MG/ML 100 ML BTL IJ (17:08)
[2024-01-22] MEDS: Normal Saline - Diluent 50 ML VIAL IJ (17:08)
[2024-01-22 17:09] LABS: Lactate 1.9 mmol/L (0.6-1.4)
[2024-01-22 17:15] LABS: Abs Immature Grans 0.06 10^3/uL (0.0-0.06); Absolute Basophil Count 0.04 10^3/uL (0.0-0.2); Absolute Eosinophil Count 0.04 10^3/uL (0.0-0.7); Absolute Lymphocyte Count 1.08 10^3/uL (1.2-3.4); Absolute Monocyte Count 0.63 10^3/uL (0.1-0.8); Absolute Neutrophil Count 9.39 10^3/uL (1.2-6.7); Basophils % 0.4 %; Eosinophils % 0.4 %; HGB 15.1 g/dL (13.5-17.5); Immature Grans % 0.5 %; Lymphocytes % 9.6 %; MCH 27.3 pg (27.0-33.0); MCHC 33.6 % (32.0-36.0); MCV 81 fL (80-95); MPV 8.9 fL (8.0-11.0); Monocytes % 5.6 %; Neutrophils % 83.5 %; Platelet Count 260 10^3/uL (130-400); RBC 5.54 10^6/uL (4.36-5.78); RDW 12.8 % (11.8-14.1); RDW-SD 37.7 fL; WBC 11.24 10^3/uL (4.4-10.8)
[2024-01-22 17:19] LABS: ESR < 1 mm/hr (0-15)
[2024-01-22 17:28] LABS: ALT 65 U/L (16-63); AST 23 U/L (15-37); Albumin 4.7 g/dL (3.4-5.0); Alkaline Phosphatase 97 U/L (46-116); Anion Gap 7.3 mmol/L (3-11); BUN 13 mg/dL (7-18); Bilirubin, Total 0.3 mg/dL (0.2-1.0); CO2 31.7 mmol/L (21.0-32.0); Calcium 9.1 mg/dL (8.5-10.1); Chloride 103 mmol/L (98-107); Estimated GFR 104.48 (mL/min/1.73m2); Glucose 132 mg/dL (74-106); Magnesium 1.7 mg/dL (1.8-2.4); Potassium 4.5 mmol/L (3.5-5.1); Sodium 142 mmol/L (136-145)
[2024-01-22 17:29] LABS: C-Reactive Protein < 0.50 mg/dL (<or=0.5)
[2024-01-22] MEDS: Dexamethasone 10 MG/ML VIAL IVP (17:48)
[2024-01-22] MEDS: Normal Saline 1,000 ML 1000 ML IV (17:49)
[2024-01-22] MEDS: Metoclopramide 10 MG/2 ML VIAL IVP (17:49)
[2024-01-22] MEDS: diphenhydrAMINE 50 MG/ML VIAL 25 MG IVP (17:49)
[2024-01-22 17:50] LABS: Procalcitonin < 0.1 ng/mL
== END 2024-01-22 18:19 | disposition home or self-care (01) ==
LOC: ER 18:18
PROVIDERS: Emergency Provider Physician Assistant; PCP Family Medicine
DX: G43.809 Other migraine, not intractable, without status migrainosus (principal)
CPT/HCPCS: 36415; 70496; 70498; 80053; 84145; 85652; 99285; 83605; 83735; 85025; 86140; 99284; J1100; J1200; J2765; J3490

== ENCOUNTER 2024-10-05 23:22 | Emergency (ER) | payer BC, SELFPAY ==
[2024-10-05 23:35] VITALS: BP 122/80; PULSE 120; RESP 20; TEMP 38.1; O2SAT 98
[2024-10-06 00:20] LABS: COVID-19 PCR Negative (Negative); Influenza B PCR Negative (Negative); RSV PCR Negative (Negative)
[2024-10-06 00:22] LABS: Source Nasopharynx
[2024-10-06 00:24] LABS: Influenza A PCR Positive (Negative)
--- NOTE | 2024-10-06 00:54 | W.ED.GENAD ---
Discharge Plan Disposition Patient Disposition: Home Condition: Good Discharge Details Clinical Impression: Influenza A, Nausea & vomiting, Dehydration Primary Care Provider: Jeferson Parada ED Provider: Ej Garrison Home Meds and New Rx's Prescriptions: New oseltamivir [Tamiflu] 75 mg capsule 75 mg PO BID 5 Days Qty: 10 0RF ondansetron 4 mg tablet,disintegrating 4 mg PO Q8H Qty: 20 0RF No Action sildenafil 30 mg PO PRN Patient Comments: [facility]health visit per pt. Vyvanse 10 mg capsule 10 mg PO DAILY MDD 10 mg Qty: 28 0RF multivitamin Tablet 1 tab PO DAILY Discharge Instructions Instructions: Flu, Adult ED Additional Instructions: At this time your influenza test is positive. This is likely the cause of your nausea and vomiting. Please drink plenty of fluids and stay well-hydrated. Take the Zofran as needed for nausea. Please take the Tamiflu to help reduce the longevity of your symptoms from influenza. If you notice any worsening of your symptoms, or any new symptoms such as vomiting, diarrhea, fever, chills, shortness of breath, chest pain, numbness, weakness, or fainting , please return immediately to the emergency department for reevaluation. Please follow up with your primary care provider as soon as possible for reassessment and reevaluation. As always, it was a pleasure participating in your medical care today. Referrals: Jeferson Parada DO [Primary Care Provider] - [facility] General Date/Time Provider Initiated Documentation: 10/05/24 23:26. HPI Narrative: 29-year-old male with no significant past medical history who presents today for evaluation of nausea vomiting and fever. He has had no diarrhea. He admits to mild epigastric achiness. He denies any alcohol use. He is thrown up multiple times per day today. He denies any blood in his vomit. He denies any posterior neck pain. He denies any other complaints at this time. Related Data Home Medications ?Medication ?Instructions ?Recorded ?Confirmed sildenafil 30 mg PO PRN 09/04/21 10/06/24 multivitamin 1 tab PO DAILY 09/25/21 10/06/24 lisdexamfetamine 10 mg capsule 10 mg PO DAILY #28 caps 11/23/22 10/06/24 (Vyvanse) ondansetron 4 mg disintegrating 4 mg PO Q8H #20 tabs 10/06/24 tablet oseltamivir 75 mg capsule (Tamiflu) 75 mg PO BID 5 days #10 caps 10/06/24 Previous Rx's ?Medication ?Instructions ?Recorded lisdexamfetamine 10 mg capsule 10 mg PO DAILY #28 caps 11/23/22 (Vyvanse) ondansetron 4 mg disintegrating 4 mg PO Q8H #20 tabs 10/06/24 tablet oseltamivir 75 mg capsule (Tamiflu) 75 mg PO BID 5 days #10 caps 10/06/24 Allergies Allergy/AdvReac Type Severity Reaction Status Date / Time No Known Allergies Allergy Verified 10/06/24 01:04 General DARRICK: 3 Exam Narrative Exam Narrative: 1.Const: Well-nourished, Well-developed, appearing stated age 2.Eyes: PERRL, no conjunctival injection, and symmetrical lids. 3.ENT: Atraumatic external nose and ears. NOtably dry MM. Neck: Symmetric, trachea midline, No thyromegaly. 4.CVS: +S1/S2, Peripheral pulses 2+ and equal in all extremities. Brisk capillary refill in all extremities. 5.RESP: Unlabored respiratory effort. Clear to auscultation bilaterally. No wheezes rales or rhonchi 6.GI: Soft, Nontender/Nondistended, No hepatosplenomegaly. No guarding or rebound. 7.MSK: Normocephalic/Atraumatic, Extremities w/o deformity or ttp No cyanosis or clubbing, Normal movement of all extremities 8.Skin: Warm, Dry. No rashes or lesions. 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 Sensation grossly intact, no focal neurologic deficits. 10.Psych: (AAO) x3. Appropriate mood and affect Course Vital Signs Vital signs: Vital Signs Temperature 38.1 C H 10/05/24 23:35 Pulse 120 H 10/05/24 23:35 Respiratory Rate 20 10/05/24 23:35 Blood Pressure 122/80 10/05/24 23:35 Pulse Oximetry 98 10/05/24 23:35 Temperature 38.1 C H 10/05/24 23:35 Temperature Source Oral 10/05/24 23:35 Pulse 120 H 10/05/24 23:35 Respiratory Rate 20 10/05/24 23:35 Blood Pressure 122/80 10/05/24 23:35 Pulse Oximetry 98 10/05/24 23:35 Oxygen Delivery Method Room Air 10/05/24 23:35 Oxygen Flow Rate 0 10/05/24 23:35 Pain Level 2 10/05/24 23:35 Comment pain location- back 10/05/24 23:35 Lab/Test Results Lab/Test Results: Laboratory Tests Range/Units 10/05/24 23:40 COVID-19 Source Nasopharynx SARS-CoV-2 (PCR) (Negative) Negative Influenza Type A (PCR) (Negative) Positive A Influenza Type B (PCR) (Negative) Negative RSV (PCR) (Negative) Negative Medical Decision Making 29-year-old male with no significant past medical history who presents today for evaluation of nausea vomiting and fever. He has had no diarrhea. He admits to mild epigastric achiness. He denies any alcohol use. He is thrown up multiple times per day today. He denies any blood in his vomit. He denies any posterior neck pain. He denies any other complaints at this time. Exam demonstrates well-appearing male, notably dry mucous membranes, notably reassuring nontender abdomen with no pain at McBurney's point, negative Medeiros sign. Symptoms appear concerning for viral gastroenteritis and dehydration. Will test for flu and COVID, get an IV, give a liter of normal saline, give Zofran, monitor closely and reassess. 1:10 AM Patient still feels quite nauseous, flu a has returned positive. Pending IV fluid administration. 2:08 AM Patient is feeling much better after fluids, nausea has resolved. He has been able to tolerate p.o. Laboratory workup is negative for any significant abnormality. Lipase normal. We will start the patient on Tamiflu and he is consented for this. Will give a dose here and prescription for home. Will give Zofran for home as well. Patient has tolerated p.o. well, no signs of obstruction. Discussed red flags which to return. Suspect gastroenteritis secondary to influenza. I have extensively reviewed the treatment plan and discharge instructions with the patient. I have addressed all patient concerns at this time. The patient was made aware of what symptoms to monitor for that would warrant a return to the emergency department. Discussed the plan with the patient, they demonstrate verbal understanding and agreement with our assessment and plan at this time. The documentation in this chart was dictated using [employer] dictation software. Please excuse any dictation errors. Quality:SDOH Health Related Social Needs: No Data to Display PFSH All Active Problems (Updated 10/06/24 @ 02:11 by Ej Garrison DO) Dehydration (Acute) Nausea & vomiting (Acute) Influenza A (Acute) ADHD (Acute) Hematuria (Acute) Umbilical hernia (Acute) CT 07/29/21 Medical History (Updated 10/06/24 @ 02:11 by Ej Garrison DO) Forearm fracture Left Surgical History (Updated 10/11/21 @ 11:04 by Jaja Morgan RN) History of umbilical hernia repair (~10/10/21) [place] teeth extracted Social History Smoking/Tobacco Use Status: Never Smoking risk assessment performed?: Yes Alcohol Intake: current Alcohol Intake frequency: a few times a week Alcohol type: beer and wine Drug use: Occasionally Substance use type: marijuana Adopted: Yes Caregiver/Support person: No Foster care: No Household members: family Housing: house Number of Children: 0 Do you need help understanding health information?: Rarely 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: Student Pets and animals: Yes Pets and animals: dog(s) Sexually active: Yes Do you think of yourself as: straight/heterosexual Current gender identity: male Do you feel safe at home: Yes Do you feel safe in your relationship?: Yes
[2024-10-06] MEDS: Ondansetron O.D.T. 4 MG TABEF PO (00:56)
[2024-10-06 00:57] VITALS: BP 109/68; PULSE 125; RESP 16; TEMP 37.7; O2SAT 98
[2024-10-06 01:02] VITALS: BP 109/68; PULSE 125; RESP 16; TEMP 37.7; O2SAT 98
[2024-10-06] MEDS: Ondansetron 4 MG/2 ML VIAL IVP (01:23)
[2024-10-06] MEDS: Normal Saline 1,000 ML 1000 ML IV (01:23)
[2024-10-06 01:33] LABS: Abs Immature Grans 0.04 10^3/uL (0.0-0.06); Absolute Basophil Count 0.02 10^3/uL (0.0-0.2); Absolute Eosinophil Count 0.01 10^3/uL (0.0-0.7); Absolute Lymphocyte Count 0.56 10^3/uL (1.2-3.4); Absolute Monocyte Count 1.08 10^3/uL (0.1-0.8); Basophils % 0.2 %; Eosinophils % 0.1 %; HCT 44.3 % (40.0-50.0); HGB 14.8 g/dL (13.5-17.5); Immature Grans % 0.5 %; MCH 27.3 pg (27.0-33.0); MCHC 33.4 % (32.0-36.0); MCV 82 fL (80-95); MPV 9.5 fL (8.0-11.0); Monocytes % 13.5 %; Neutrophils % 78.7 %; Platelet Count 230 10^3/uL (130-400); RBC 5.43 10^6/uL (4.36-5.78); RDW 12.8 % (11.8-14.1); RDW-SD 38.2 fL; WBC 8.01 10^3/uL (4.4-10.8)
[2024-10-06 01:47] LABS: ALT 56 U/L (16-63); AST 21 U/L (15-37); Albumin 4.6 g/dL (3.4-5.0); Alkaline Phosphatase 86 U/L (46-116); Anion Gap 7.6 mmol/L (3-11); BUN 13 mg/dL (7-18); Bilirubin, Total 0.78 mg/dL (0.2-1.0); CO2 29.4 mmol/L (21.0-32.0); CREATININE 1.2 mg/dL (0.70-1.30); Calcium 9.5 mg/dL (8.5-10.1); Chloride 102 mmol/L (98-107); Estimated GFR 83.43 (mL/min/1.73m2); Glucose 131 mg/dL (74-106); Lipase 31 U/L (<78); Potassium 4.2 mmol/L (3.5-5.1); Sodium 139 mmol/L (136-145)
[2024-10-06] MEDS: Ondansetron O.D.T. 4 MG TABEF, 3 TABS/BTL PO (02:41)
[2024-10-06] MEDS: Oseltamivir 75 MG CAP PO (02:44)
[2024-10-06 03:14] VITALS: BP 146/87; PULSE 101; RESP 18; TEMP 37.7; O2SAT 97
== END 2024-10-06 03:14 | disposition home or self-care (01) ==
PROVIDERS: Emergency Provider Student in an Organized Health Care Education/Training Program; PCP Family Medicine
DX: J09.X9 Influenza due to identified novel influenza A virus with other manifestations (principal); R11.2 Nausea with vomiting, unspecified; R50.9 Fever, unspecified; E86.0 Dehydration
CPT/HCPCS: 80053; 83690; 87637; 96361; 96374; 99284; 85025; 99283; J2405